=== PATIENT | female | born 2000 | race Two or more races ===

== ENCOUNTER 2018-05-25 19:13 | Emergency (ER) | payer OTHER ==
[~2018-05-25] VITALS: Ht 162.6 cm; Wt 49.0 kg
== END 2018-05-26 00:20 | disposition home or self-care (01) ==
LOC: ER 19:13
DX: O21.0 Mild hyperemesis gravidarum (principal); Z34.01 Encounter for supervision of normal first pregnancy, first trimester

== ENCOUNTER 2018-10-23 18:32 | Outpatient (CLI) | payer OTHER | END 2018-10-24 13:00 | disposition home or self-care (01) | LOC: OBS/DEL 18:32 | DX: O26.893 Other specified pregnancy related conditions, third trimester (principal); Z04.1 Encounter for examination and observation following transport accident; O35.8XX0 Maternal care for other (suspected) fetal abnormality and damage, not applicable or unspecified; Z34.03 Encounter for supervision of normal first pregnancy, third trimester; V49.88XA Car occupant (driver) (passenger) injured in other specified transport accidents, initial encounter; Y93.89 Activity, other specified; Y92.488 Other paved roadways as the place of occurrence of the external cause; Y99.8 Other external cause status ==

== ENCOUNTER 2018-11-13 10:23 | Outpatient (CLI) | payer OTHER | END 2018-11-13 11:30 | disposition home or self-care (01) | LOC: PRENATAL 10:23 | DX: O28.3 Abnormal ultrasonic finding on antenatal screening of mother (principal); O35.3XX0 Maternal care for (suspected) damage to fetus from viral disease in mother, not applicable or unspecified; O36.5921 Maternal care for other known or suspected poor fetal growth, second trimester, fetus 1; O72.2 Delayed and secondary postpartum hemorrhage ==

== ENCOUNTER 2018-11-20 08:11 | Outpatient (CLI) | payer OTHER | END 2018-11-20 09:00 | disposition home or self-care (01) | LOC: PRENATAL 08:11 | DX: O36.5991 Maternal care for other known or suspected poor fetal growth, unspecified trimester, fetus 1 (principal) ==

== ENCOUNTER → 2018-11-29 | Outpatient (CLI) | payer OTHER | END | disposition home or self-care (01) | LOC: PRENATAL 10:00 | DX: O36.5930 Maternal care for other known or suspected poor fetal growth, third trimester, not applicable or unspecified (principal) ==

== ENCOUNTER → 2018-12-06 | Outpatient (CLI) | payer OTHER | END | disposition home or self-care (01) | LOC: PRENATAL 09:12 | DX: O26.843 Uterine size-date discrepancy, third trimester (principal); O36.5931 Maternal care for other known or suspected poor fetal growth, third trimester, fetus 1; O36.8131 Decreased fetal movements, third trimester, fetus 1 ==

== ENCOUNTER 2018-12-11 15:53 | Inpatient (IN) | payer OTHER ==
[~2018-12-11] VITALS: Ht 162.6 cm; Wt 63.5 kg
[2018-12-31] MEDS ORDERED: PRENATABS RX T1 EACH PO (05:10)
== END 2019-01-06 13:01 | DRG 807 ==
LOC: LDR 01-04 17:06 → OB/GYN 01-04 17:06
PROVIDERS: ADMIT Obstetrics & Gynecology
PROC: 10E0XZZ Delivery of Products of Conception, External Approach (ICD-10-PCS; principal; 2019-01-04)
PROC: 0KQM0ZZ Repair Perineum Muscle, Open Approach (ICD-10-PCS; 2019-01-04)
PROC: 4A1HXCZ Monitoring of Products of Conception, Cardiac Rate, External Approach (ICD-10-PCS; 2019-01-04)
PROC: 4A033R1 Measurement of Arterial Saturation, Peripheral, Percutaneous Approach (ICD-10-PCS; 2019-01-04)
DX: O70.1 Second degree perineal laceration during delivery (principal); Z37.0 Single live birth; Z3A.39 39 weeks gestation of pregnancy

== ENCOUNTER → 2018-12-28 | Outpatient (CLI) | payer OTHER ==
[~2018-12-28] MED LIST: PRENATABS RX T1 EACH PO
== END | disposition home or self-care (01) ==
LOC: PRENATAL 12-27 09:00
DX: O26.843 Uterine size-date discrepancy, third trimester (principal); O36.5931 Maternal care for other known or suspected poor fetal growth, third trimester, fetus 1

== ENCOUNTER 2018-12-31 04:34 | Outpatient (CLI) | payer OTHER ==
[2018-12-31] MEDS ORDERED: PRENATABS RX T1 EACH PO (05:10)
== END 2018-12-31 11:13 | disposition home or self-care (01) ==
LOC: OBS/DEL 04:34
DX: O47.1 False labor at or after 37 completed weeks of gestation (principal)

== ENCOUNTER 2019-12-12 16:45 | Emergency (ER) | payer OTHER ==
[~2019-12-12] VITALS: Ht 162.6 cm; Wt 49.0 kg
== END 2019-12-12 17:52 | disposition home or self-care (01) ==
LOC: ER 16:45
DX: J35.01 Chronic tonsillitis (principal)

== ENCOUNTER 2020-02-24 07:47 | Emergency (ER) | payer OTHER ==
[~2020-02-24] VITALS: Ht 162.6 cm; Wt 48.1 kg
== END 2020-02-24 13:44 | disposition home or self-care (01) ==
LOC: ER 07:47
DX: R11.10 Vomiting, unspecified (principal); Z20.828 Contact with and (suspected) exposure to other viral communicable diseases

== ENCOUNTER 2020-09-18 18:52 | Emergency (ER) | payer OTHER ==
[~2020-09-18] VITALS: Ht 162.6 cm; Wt 49.9 kg
[2020-09-19] MEDS ORDERED: ACETAMINOPHEN650 M2 PO (01:56)
[2020-09-19] MEDS ORDERED: PEPCID AC20 MG PO (01:56)
[2020-09-19] MEDS ORDERED: ONDANSETRON HCL4 MG PO (01:56)
[2020-09-19] MEDS ORDERED: UNISOM25 MG PO (01:56)
== END 2020-09-19 01:59 | disposition home or self-care (01) ==
LOC: ER 18:52
DX: O21.0 Mild hyperemesis gravidarum (principal); Z3A.09 9 weeks gestation of pregnancy

== ENCOUNTER 2020-11-20 08:00 | Outpatient (CLI) | payer OTHER ==
[~2020-11-20 08:00] MED LIST changes: +ACETAMINOPHEN650 M2 PO; +ONDANSETRON HCL4 MG PO; +PEPCID AC20 MG PO; +UNISOM25 MG PO
== END 2020-11-20 08:30 | disposition home or self-care (01) ==
LOC: PPH VACUNA 08:00
PROVIDERS: ATTEND Emergency Medicine Pediatric Emergency Medicine
DX: Z23 Encounter for immunization (principal)

== ENCOUNTER 2020-11-24 08:00 | Outpatient (CLI) | payer OTHER | END 2020-11-24 08:30 | disposition home or self-care (01) | LOC: PPH VACUNA 08:00 | PROVIDERS: ATTEND Emergency Medicine Pediatric Emergency Medicine | DX: Z23 Encounter for immunization (principal) ==

== ENCOUNTER → 2020-12-25 | Emergency (ER) | payer OTHER ==
[~2020-12-25] VITALS: Ht 162.6 cm; Wt 54.4 kg
== END | disposition home or self-care (01) ==
LOC: ER 20:39
DX: J20.8 Acute bronchitis due to other specified organisms (principal); Z03.818 Encounter for observation for suspected exposure to other biological agents ruled out

== ENCOUNTER 2021-10-04 21:05 | Emergency (ER) | payer OTHER ==
[~2021-10-04] VITALS: Ht 162.6 cm; Wt 59.0 kg
[2021-10-05] MEDS ORDERED: ZYRTEC10 MG PO (00:08)
[2021-10-05] MEDS ORDERED: ZITHROMAX500 MG PO (00:08)
[2021-10-05] MEDS ORDERED: TUSNEL LIQUID178 ML PO (00:08)
== END 2021-10-05 00:27 | disposition home or self-care (01) ==
LOC: ER 21:05
DX: J06.9 Acute upper respiratory infection, unspecified (principal); Z20.828 Contact with and (suspected) exposure to other viral communicable diseases

== ENCOUNTER 2022-08-03 00:14 | Emergency (ER) | payer OTHER ==
[~2022-08-03] VITALS: Ht 162.6 cm; Wt 56.2 kg
[~2022-08-03 00:14] MED LIST changes: +TUSNEL LIQUID178 ML PO; +ZITHROMAX500 MG PO; +ZYRTEC10 MG PO
[2022-08-03] MEDS ORDERED: PHENAGIL TABLE1 EACH PO (05:15)
[2022-08-03] MEDS ORDERED: ZYNCOF 20-400120 ML PO (05:15)
[2022-08-03] MEDS ORDERED: DOLOGESIC-DF 51 EACH PO (05:15)
== END 2022-08-03 05:50 ==
LOC: ER 00:14
DX: U07.1 COVID-19 (principal); R50.9 Fever, unspecified; R53.81 Other malaise

== ENCOUNTER 2024-08-26 12:12 | Emergency (ER) | payer OTHER ==
[~2024-08-26] VITALS: Ht 162.6 cm; Wt 56.2 kg
[~2024-08-26 12:12] MED LIST changes: +DOLOGESIC-DF 51 EACH PO; +PHENAGIL TABLE1 EACH PO; +ZYNCOF 20-400120 ML PO
[2024-08-26] MEDS ORDERED: KETOROLAC TROMETHAMINE 60 MG VIAL IM ONE (13:15)
[2024-08-26 15:36] LABS: BASO % 0.9 % (0.1-1.2); EOS # 0.19 (0.04-0.54); EOS % 2.4 % (0.7-7.0); HEMATOCRIT 38.3 % (34.1-44.9); HEMOGLOBIN 12.5 g/dL (11.2-15.7); LYMPH # 2.83 (1.18-3.74); LYMPH % 35.2 % (19.3-53.1); MEAN CORPUSCULAR HEMOGLOBIN 28.5 pg (25.6-32.2); MONO # 0.41 (0.24-0.82); MONO % 5.1 % (4.7-12.5); NEUT # 4.51 (1.56-6.13); NEUT % 56.2 % (34.0-71.1); PLATELET COUNT 325 K/uL (163-369); RED BLOOD COUNT 4.38 M/uL (3.93-5.22); RED CELL DISTRIBUTION WIDTH 13.2 % (11.6-14.4)
[2024-08-26 16:00] LABS: ALBUMIN 4.3 gm/dL (3.4-5.0); BILIRUBIN TOTAL 0.5 mg/dL (0.3-1.2); CALCIUM 9.4 mg/dL (8.5-10.1); CREATININE SERUM 0.69 mg/dL (0.55-1.02); GFR 102.84; GLOBULINA 3.8 G/DL (2.4-3.5); POTASSIUM 4.15 mEq/L (3.5-5.1); TOTAL PROTEIN 8.1 gm/dL (6.4-8.2)
[2024-08-26] MEDS ORDERED: NORFLEX100MG PO (16:07)
== END 2024-08-26 16:11 | disposition home or self-care (01) ==
LOC: ER 12:12
PROVIDERS: General Practice
DX: M94.0 Chondrocostal junction syndrome [Tietze] (principal); R07.89 Other chest pain

== ENCOUNTER 2024-09-24 15:58 | Emergency (ER) | payer OTHER ==
[~2024-09-24] VITALS: Ht 160 cm; Wt 55.3 kg
[~2024-09-24 15:58] MED LIST changes: +NORFLEX100MG PO
[2024-09-24] MEDS ORDERED: METOCLOPRAMIDE HCL 5 MG/ML VIAL IM STA (17:30)
[2024-09-24] MEDS ORDERED: 0.9 % SODIUM CHLORIDE 1,000 ML IV STA (17:32)
[2024-09-24] MEDS ORDERED: ONDANSETRON HCL 2 MG/ML VIAL IV STA (17:33)
[2024-09-24] MEDS ORDERED: FAMOtidine 10 MG/ML (4ML VIAL) IV PUSH STA (17:33)
[2024-09-24 18:35] LABS: BASO % 0.7 % (0.1-1.2); EOS # 0.21 (0.04-0.54); EOS % 2.3 % (0.7-7.0); LYMPH # 2.85 (1.18-3.74); LYMPH % 30.9 % (19.3-53.1); MEAN PLATELET VOLUME 9.60 fl (9.4-12.4); MONO # 0.54 (0.24-0.82); MONO % 5.9 % (4.7-12.5); NEUT # 5.52 (1.56-6.13); NEUT % 59.9 % (34.0-71.1); RED CELL DISTRIBUTION WIDTH 12.8 % (11.6-14.4)
[2024-09-24 20:09] LABS: BUN CREA RATIO 16.0 (7.0-25.0); CREATININE SERUM 0.7 mg/dL (0.55-1.02); GFR 101.15; GLUCOSE FASTING 81.0 mg/dL (65-100); OSMOLALITY SERUM 274.0 MOSM/KG (275-295)
[2024-09-24 20:34] LABS: HCG QUANTITATIVE 61346.0 mUI/mL (1-3)
== END 2024-09-24 21:13 | disposition home or self-care (01) ==
LOC: ER 15:58
DX: O21.8 Other vomiting complicating pregnancy (principal); Z3A.01 Less than 8 weeks gestation of pregnancy

== ENCOUNTER 2024-10-01 17:57 | Emergency (ER) | payer OTHER ==
[2024-10-01] MEDS ORDERED: 0.9 % SODIUM CHLORIDE 1,000 ML IV STA (21:24)
[2024-10-01] MEDS ORDERED: ONDANSETRON HCL 2 MG/ML VIAL IV STA (21:25)
[2024-10-01] MEDS ORDERED: METOCLOPRAMIDE HCL 5 MG/ML VIAL IM STA (21:25)
[2024-10-01] MEDS ORDERED: FAMOtidine 10 MG/ML (4ML VIAL) IV PUSH STA (21:26)
[2024-10-01] MEDS ORDERED: ONDANSETRON HCL 2 MG/ML VIAL ONE (21:32)
[2024-10-01] MEDS ORDERED: METOCLOPRAMIDE HCL 5 MG/ML VIAL ONE (21:32)
[2024-10-01] MEDS ORDERED: FAMOTIDINE/PF 20 MG/2 ML VIAL ONE (21:33)
[2024-10-01 22:12] LABS: BASO % 0.6 % (0.1-1.2); EOS # 0.21 (0.04-0.54); EOS % 2.0 % (0.7-7.0); LYMPH # 3.61 (1.18-3.74); LYMPH % 35.0 % (19.3-53.1); MEAN PLATELET VOLUME 9.50 fl (9.4-12.4); MONO # 0.51 (0.24-0.82); MONO % 4.9 % (4.7-12.5); NEUT # 5.90 (1.56-6.13); NEUT % 57.2 % (34.0-71.1); RED CELL DISTRIBUTION WIDTH 12.7 % (11.6-14.4)
[2024-10-01 22:56] LABS: ALT/SGPT 27.0 U/L (12-78); AST/SGOT 15.0 U/L (15-37); BILIRUBIN TOTAL 0.29 mg/dL (0.3-1.2); BUN CREA RATIO 17.0 (7.0-25.0); CREATININE SERUM 0.48 mg/dL (0.55-1.02); GFR 156.33; GLOBULINA 3.3 G/DL (2.4-3.5); GLUCOSE FASTING 75.0 mg/dL (65-100); OSMOLALITY SERUM 273.0 MOSM/KG (275-295)
[2024-10-01 22:57] LABS: HCG QUANTITATIVE 88765.0 mUI/mL (1-3)
[2024-10-01 23:18] LABS: URINE APPEARANCE Cloudy; URINE BILIRRUBIN Negative (NEGATIVE); URINE BLOOD Negative; URINE COLOR Yellow; URINE GLUCOSE Negative (NEGATIVE); URINE KETONE Trace (NEGATIVE); URINE LEUKOCYTE Small; URINE NITRATE Negative; URINE PROTEIN Negative (NEGATIVE); URINE UROBILINOGEN 2.0 E.U./dl
[2024-10-01 23:21] LABS: URINE BACTERIA 1415.9 uL (0.0-1933); URINE EPITHELIAL CELLS 90.1 uL (0.0-38.8); URINE RBC 38.8 uL (0.0-20.8); URINE WBC 53.6 uL (0.0-23.2)
[2024-10-01 23:47] LABS: URINE CAST 0.29 uL (0.0-1.40); URINE CRYSTALS MANY /HPF
== END 2024-10-01 23:35 | disposition home or self-care (01) ==
LOC: ER 17:57
DX: O21.9 Vomiting of pregnancy, unspecified (principal); Z3A.01 Less than 8 weeks gestation of pregnancy